=== PATIENT | female | born 1945 | race African-American/Black ===

== ENCOUNTER 2023-01-22 15:42 | Emergency (ER) | payer MEDICARE, SELFPAY ==
[2023-01-22] VITALS (12 sets, daily range): BP systolic 121–137; BP diastolic 66–74; PULSE 82–105; RESP 13–20; TEMP 37; O2SAT 98–100
--- NOTE | ~2023-01-22 | CT_ITS ---
EXAMINATION: CT cervical spine wo con DATE: 01/22/2023 17:41 INDICATION: Neck pain TECHNIQUE: Computed tomography (CT) of the cervical spine was performed without intravenous contrast. The dose-length product (DLP) was 100.52 mGy-cm. Automated exposure control and iterative reconstruc tion technique were employed. COMPARISON: None FINDINGS: Bone alignment is normal. There is no fracture. The odontoid process is intact. The vertebr al body heights are normal. There is severe loss of intervertebral disc space height at C6-7 and mode rate loss of disc space height at C5-6. 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 IMPRESSION: 1. Severe cervical spondylosis without acute findings. Reviewed, dictated and finalized at location F.
--- NOTE | ~2023-01-22 | CT_ITS ---
EXAMINATION: CT chest abdomen pelvis w con DATE: 01/22/2023 17:41 INDICATION: Right-sided pain after fall from ladder TECHNIQUE: Transaxial computed tomographic images of the chest, abdomen, and pelvis were obtained aft er the administration of 100 cc of Omnipaque 350 intravenous contrast. The dose-length product (DLP) was 488.39 mGy-cm. Automated exposure control and iterative reconstruction technique were employed. COMPARISON: None FINDINGS: CHEST CT: There is dependent atelectasis. No pleural effusion or pneumothorax. No pathologically enlarged thora cic lymph nodes are identified. The heart size is normal. There is moderate thoracic spondylosis. The re is an acute nondisplaced fracture in the medial aspect of the right 12th rib. ABDOMEN/PELVIS CT: There is a small sliding hiatal hernia. Cysts of the liver measure up to 6 mm in the right hepatic lo be. The spleen, pancreas, gallbladder, and adrenal glands are normal. Cysts of the kidneys measure up to 2 cm on the right. There is a 3 mm nonobstructing stone of the left kidney lower pole. No patholo gically enlarged abdominal or pelvic lymph nodes are identified. No free intraperitoneal gas or evide nce of bowel obstruction. There is mild lumbar spondylosis. There is a nondisplaced fracture of the r ight L1 transverse process. IMPRESSION: 1. Acute nondisplaced fractures of the right 12th rib and right L1 transverse process. No acute visce ral abnormality of the chest, abdomen, or pelvis. Reviewed, dictated and finalized at location F. IMPRESSION: 1. Acute nondisplaced fractures of the right 12th rib and right L1 transverse p rocess. No acute visceral abnormality of the chest, abdomen, or pelvis.
--- NOTE | ~2023-01-22 | CT_ITS ---
EXAMINATION: CT brain wo con INDICATION: Headache COMPARISON: None TECHNIQUE: Standard unenhanced head CT. The dose-length product (DLP) was 605.33 mGy-cm. The mA was a djusted according to patient size. Iterative reconstruction technique was employed. FINDINGS: No acute intraparenchymal hemorrhage. No evidence of mass lesion. No evidence of acute infa rction. There is mild periventricular and subcortical hypodensity probably related to small vessel is chemic disease. There is mild prominence of the sulci and ventricles related to cerebral atrophy. Int racranial calcified cerebral atherosclerosis is noted. No extra-axial collections. No mass effect or midline shift. The orbits and soft tissues are unremarkable. The visualized sinuses and mastoid air c ells are well aerated. IMPRESSION: 1. No acute intracranial abnormality. 2. Age related findings. Reviewed, dictated and finalized at location F.
--- NOTE | 2023-01-22 16:16 | ED.FALL ---
HPI - Fall General Chief Complaint: Fall Stated Complaint: fall Time Seen by Provider: 01/22/23 16:11 History of Present Illness HPI Narrative: Patient is a 77-year-old female here after a fall. Patient states that around 630 this morning she is attempting to change a light bulb in her shower. She states she was standing on a step ladder with another object on top to be able to reach the light bulb and she slipped and fell. She states she landed on the shower with her right flank. She denies any head injury, denies any loss of consciousness, she does note that she felt like the wind got knocked out of her. She took some Tylenol at home initially and eventually when the pain was not subsiding told her family about this and they advised she come into the emergency department for evaluation. She is currently complaining of some right-sided flank pain, no additional injuries. Currently refusing additional pain medication. No prodromal chest pain, shortness of breath or light headedness prior to fall. Related Data Allergies Allergy/AdvReac Type Severity Reaction Status Date / Time No Known Allergies Allergy Verified 01/22/23 16:13 Review of Systems Review of Systems: All systems reviewed & are unremarkable except as noted in HPI and below PMFSH Family History Family History (Updated 11/01/15 @ 23:21 by DOCTOR UNKNOWN) Mother Patient's mother is in good health Father Patient's father is Social History Social History Smoking status: Never smoker Second hand tobacco smoke exposure: No Alcohol intake: never Exam Narrative: GENERAL: Well-appearing, well-nourished, and in no acute distress. HEAD: Normocephalic, atraumatic. EYES: PERRLA and EOMI. ENT: Nares clear. Mucous membranes moist. NECK: Supple. C-collar in place, no midline C-spine tenderness CHEST: Clear to auscultation. No respiratory distress. HEART: Regular rate and rhythm. Normal peripheral pulses. ABDOMEN: Soft, nontender, nondistended. tenderness over the right flank. EXTREMITIES: Normal range of motion. No edema. Upper lower extremities atraumatic with full range of motion. No midline thoracic or lumbar tenderness. SKIN: Warm, dry, no rash. NEURO: No focal deficits. Alert and oriented x3. PSYCH: Normal mood and affect. Course Course Emergency Course: Chart review performed. Patient here after a fall. Triage vitals normal. Patient seen evaluated, nontoxic appearing. Appears to have isolated right flank injury. Will do CT head, c-spine given age in addition to CT chest/abdomen/pelvis to look for traumatic injury. Declining additional pain medication at this time. Lab work reviewed. CBC and CMP within normal limits. CT shows right 12th rib fracture and right transverse process fracture of L1. Vital Signs Vital signs: Vital Signs Temperature 98.6 F 01/22/23 15:45 Pulse Rate 87 01/22/23 15:45 Respiratory Rate 20 01/22/23 15:45 Blood Pressure 127/66 01/22/23 15:45 Pulse Oximetry 100 01/22/23 15:45 Oxygen Delivery Room Air 01/22/23 15:45 Temperature 98.6 F 01/22/23 15:45 Pulse Rate 88 01/22/23 19:41 Respiratory Rate 18 01/22/23 19:41 Blood Pressure 121/69 01/22/23 19:41 Pulse Oximetry 99 01/22/23 19:41 Oxygen Delivery Room Air 01/22/23 15:45 MDM - Fall Lab Data 01/22/23 16:21 01/22/23 16:21 Labs: Lab Results 01/22/23 01/22/23 Range/Units 16:21 17:15 WBC 8.1 (4.5-10.0) K/mm3 RBC 4.57 (4.2-5.4) M/mm3 Hgb 12.5 (12.0-15.0) g/dL Hct 39.3 (37.0-47.0) % MCV 86.0 (80-100) fl MCH 27.4 (26-34) pg MCHC 31.8 L (32-36) g/dl RDW 15.2 H (11.5-14.5) % Plt Count 257 (150-375) k/mm3 MPV 10.4 (7.4-10.4) fl Immature Gran % (Auto) Not Reportable Neut % (Auto) Not Reportable Lymph % (Auto) Not Reportable Walsh % (Auto) Not Reportable Eos % (Auto) Not Reportable
[2023-01-22 16:28] LABS: Hematocrit 39.3 % (37.0-47.0); Hemoglobin 12.5 g/dL (12.0-15.0); Mean Corpuscular HGB Conc 31.8 g/dl (32-36); Mean Corpuscular Hemoglobin 27.4 pg (26-34); Mean Platelet Volume 10.4 fl (7.4-10.4); Platelet Count Result 257 k/mm3 (150-375); Red Blood Count 4.57 M/mm3 (4.2-5.4); Red Cell Distribution Width 15.2 % (11.5-14.5); White Blood Count 8.1 K/mm3 (4.5-10.0)
[2023-01-22 16:39] LABS: Partial Thromboplastin Time 21.2 SECONDS (22.3-36.8); Prothrombin Time 13.8 Seconds (11.1-14.7)
[2023-01-22 16:40] LABS: Alanine Aminotransferase 18 U/L (6-35); Albumin Level 4.1 g/dL (3.5-5.1); Alkaline Phosphatase 61 U/L (38-126); Anion Gap 8 mmol/L (8-16); Aspartate Amino Transferase 22 U/L (14-36); Bilirubin,Total 0.6 mg/dL (0.2-1.3); Blood Urea Nitrogen 22 mg/dL (7-17); Calcium 9.1 mg/dL (8.4-10.2); Carbon Dioxide 23 mmol/L (22-30); Chloride 108 mmol/L (98-107); Estimated CRCL calculation 43 ml/min; Estimated Glomerular Filt Rate > 60; Glucose 120 mg/dL (65-110); Sodium 139 mmol/L (137-145)
[2023-01-22 17:01] LABS: Hypochromasia 1+ (NORMAL); Lymphocytes Absolute Manual 0.32 K/mm3 (1.1-4.5); Monocytes Absolute Manual 0.16 K/mm3 (0.1-0.90); Monocytes Percent Manual 2 % (3-9); Neutrophils Percent Manual 94 % (46-73); Nucleated Red Blood Cells 1 %; Platelet Estimate Adequate (Adequate); Schistocytes None Seen (NORMAL); Total Cells Counted 100
[2023-01-22 17:02] LABS: Anisocytosis 1+ (NORMAL)
[2023-01-22 17:21] LABS: Appearance Urine Clear (Clear); Bilirubin Urine Negative (Negative); Blood Urine Negative (Negative); Color Urine Yellow (Yellow); Glucose Urine UA Negative (Negative); Ketones Urine Trace mg/dL (Negative); Leukocyte Esterase Ur Negative LEU/UL (Negative); Nitrate Urine Negative (Negative); Protein Urine Negative (Negative); Specific Grav Ur 1.013 (1.001-1.035); Urobilinogen Urine 0.2 mg/dL (<2.0); pH Urine 5.5 (5.0-9.0)
[2023-01-22 17:50] LABS: Add Urine Microscopic? NO
[2023-01-22] MEDS: ACETAMINOPHEN 325 MG TABLET 650 MG PO (18:16)
[2023-01-22] MEDS: KETOROLAC 15 MG/ML VIAL (*BKC) IV PUSH (18:53)
[2023-01-22] MEDS: LIDOCAINE 5% PATCH 1 PATCH TRANSDERM (19:40)
== END 2023-01-22 19:43 | disposition home or self-care (01) ==
PROVIDERS: Emergency Provider Student in an Organized Health Care Education/Training Program
DX: S32.019A Unspecified fracture of first lumbar vertebra, initial encounter for closed fracture (principal); S22.31XA Fracture of one rib, right side, initial encounter for closed fracture; W11.XXXA Fall on and from ladder, initial encounter
CPT/HCPCS: 36415; 70450; 71260; 72125; 74177; 80053; 81003; 85025; 85610; 85730; 96374; 99284; A9270; J1885; L0140; Q9967